=== PATIENT | female | born 1990 | race Caucasian/White ===

== ENCOUNTER 2017-09-18 14:38 | Emergency (ER) | payer SELFPAY ==
[~2017-09-18] VITALS: Ht 172.7 cm; Wt 55.3 kg
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
[2017-09-18] MEDS ORDERED: ZOFRAN ODT4 MG ORAL (15:32)
[2017-09-18] MEDS ORDERED: IBUPROFEN600 MG ORAL (15:32)
[2017-09-18 15:45] VITALS: BP 121/72
== END 2017-09-18 15:45 | disposition home or self-care (01) ==
LOC: EMR 15:18
DX: F07.81 Postconcussional syndrome (principal); G44.309 Post-traumatic headache, unspecified, not intractable; Z88.6 Allergy status to analgesic agent; F17.200 Nicotine dependence, unspecified, uncomplicated
CPT/HCPCS: 99283